=== PATIENT | male | born 1960 | race Caucasian/White ===

== ENCOUNTER 2017-01-15 14:50 | Emergency (ER) | payer MEDICAID ==
[~2017-01-15 14:50] MED LIST: AMOX-291
== END 2017-01-15 17:21 | disposition left against medical advice (07) ==
LOC: ED 17:15
DX: F10.129 Alcohol abuse with intoxication, unspecified (principal); Z53.21 Procedure and treatment not carried out due to patient leaving prior to being seen by health care provider

== ENCOUNTER 2017-02-25 02:30 | Inpatient (IN) | payer MEDICAID ==
[~2017-02-25] VITALS: Ht 177.8 cm; Wt 79.0 kg
[2017-02-25] MEDS ORDERED: LORazepam 2 MG/ML, 1ML ONE (02:51)
[2017-02-25] MEDS ORDERED: SODIUM CHLORIDE FLUSH 10ML SYR IVF ONE (03:00)
[2017-02-25] MEDS ORDERED: LORazepam 2 MG/ML, 1ML IVPush ONE (03:00)
[2017-02-25] MEDS ORDERED: SODIUM CHLORIDE 0.9% 1,000ML IVBOLUS ONE (03:00)
[2017-02-25 03:02] LABS: BLOOD UREA NITROGEN 18 mg/dL (7-18)
[2017-02-25 03:09] LABS: IS PT STATUS REG ER OR PRE ER? YES
[2017-02-25] MEDS ORDERED: ZIPRASIDONE 20 MG INJ IM ONE ×2 (03:17→03:30)
[2017-02-25 07:40] VITALS: BP 123/86
[2017-02-25] MEDS ORDERED: ONDANSETRON 2MG/ML, 2ML IVPush PRN (10:30)
[2017-02-25] MEDS ORDERED: DOCUSATE 100 MG CAPSULE PO PRN (10:30)
[2017-02-25] MEDS ORDERED: BISACODYL 10 MG SUPP PR PRN (10:30)
[2017-02-25] MEDS ORDERED: POLYETHYLENE GLYCOL 17 GM PACKET PO PRN (10:30)
[2017-02-25] MEDS ORDERED: ACETAMINOPHEN 325 MG TABLET PO PRN (10:30)
[2017-02-25] MEDS ORDERED: THIAMINE 200 MG in SODIUM CHLORIDE 0.9% 50 ML IV ONE (11:00)
[2017-02-25 11:46] LABS: IS PT STATUS REG ER OR PRE ER? NO
[2017-02-25] MEDS: ENOXAPARIN 40 MG/0.4 ML SQ SCH (12:02)
[2017-02-25] MEDS: SODIUM CHLORIDE 0.9% 1,000 ML IV SCH ×2 (12:02→16:53)
[2017-02-25] MEDS: POTASSIUM CHLORIDE 20 MEQ TAB.ER.PRT PO SCH ×3 (12:02→21:39)
[2017-02-25 15:00] VITALS: BP 106/75
[2017-02-25 16:31] LABS: IS PT STATUS REG ER OR PRE ER? NO
[2017-02-25 18:37] VITALS: BP 117/74
[2017-02-25 22:14] LABS: IS PT STATUS REG ER OR PRE ER? NO
[2017-02-26 01:24] VITALS: BP 116/75
[2017-02-26] MEDS: SODIUM CHLORIDE 0.9% 1,000 ML IV SCH ×2 (05:03→12:10)
[2017-02-26 06:00] LABS: ASPARTATE AMINO TRANSFERASE 22 U/L (15-37); BLOOD UREA NITROGEN 19 mg/dL (7-18)
[2017-02-26 06:50] VITALS: BP 121/77
[2017-02-26] MEDS: MULTIVITAMIN 1 TABLET PO SCH (09:04)
[2017-02-26] MEDS: THIAMINE 100MG TABLET PO SCH (09:04)
[2017-02-26] MEDS: FOLIC ACID 1 MG TABLET PO SCH (09:04)
[2017-02-26 12:04] VITALS: BP 117/69
[2017-02-26] MEDS: ENOXAPARIN 40 MG/0.4 ML SQ SCH (12:22)
[2017-02-26] MEDS ORDERED: FOLI-17 PO (15:05)
[2017-02-26] MEDS ORDERED: THIA100T6 PO (15:05)
[2017-02-26] MEDS ORDERED: MULT1TAB60 PO (15:05)
[2017-02-26 19:41] VITALS: BP 121/79
[2017-02-27 02:55] VITALS: BP 107/70
[2017-02-27] MEDS ORDERED: REGADENOSON 0.4 MG/5 ML SYRINGE ONE (07:49)
[2017-02-27 08:11] VITALS: BP 103/75
[2017-02-27] MEDS: THIAMINE 100MG TABLET PO SCH (10:51)
[2017-02-27] MEDS: MULTIVITAMIN 1 TABLET PO SCH (10:51)
[2017-02-27] MEDS: ENOXAPARIN 40 MG/0.4 ML SQ SCH (10:51)
[2017-02-27] MEDS: FOLIC ACID 1 MG TABLET PO SCH (10:51)
[2017-02-27 16:10] VITALS: BP 122/86
[2017-02-27] MEDS ORDERED: ASPI-515 PO (17:24)
== END 2017-02-27 18:34 | disposition home or self-care (01) | DRG 918 ==
LOC: ED 04:40 → EDIP 06:05 → 5SO 07:24
PROVIDERS: ADMIT Hospitalist; ATTEND Internal Medicine
DX: T43.621A Poisoning by amphetamines, accidental (unintentional), initial encounter (principal); R00.2 Palpitations; E87.6 Hypokalemia; M19.90 Unspecified osteoarthritis, unspecified site; F10.20 Alcohol dependence, uncomplicated; G47.00 Insomnia, unspecified; F15.10 Other stimulant abuse, uncomplicated; R00.0 Tachycardia, unspecified; Y92.89 Other specified places as the place of occurrence of the external cause
CPT/HCPCS: 36415; 71010; 78452; 80048; 80053; 80061; 82040; 83735; 84100; 84443; 84484; 85025; 93005; 93017; 93306; 96361; 96372; 96374; J1650; J2785; J3411; J3486; A9502; C9898; J2060; J7030

== ENCOUNTER 2017-03-26 02:08 | Emergency (ER) | payer MEDICAID ==
[~2017-03-26] VITALS: Ht 180.3 cm; Wt 78.0 kg
[~2017-03-26 02:08] MED LIST changes: +ASPI-515 PO; +FOLI-17 PO; +MULT1TAB60 PO; +THIA100T6 PO
[2017-03-26] MEDS ORDERED: SODIUM CHLORIDE 0.9% 1,000 ML IV ONE (02:22)
[2017-03-26] MEDS ORDERED: HALOPERIDOL 5 MG/ML ONE ×2 (02:27→03:00)
[2017-03-26] MEDS ORDERED: LORazepam 2 MG/ML, 1ML ONE (02:27)
[2017-03-26] MEDS ORDERED: HALOPERIDOL 5 MG/ML IM ONE (02:30)
[2017-03-26] MEDS ORDERED: SODIUM CHLORIDE 0.9% 1,000ML IVBOLUS ONE (02:30)
[2017-03-26] MEDS ORDERED: LORazepam 2 MG/ML, 1ML IVPush ONE (02:30)
[2017-03-26 02:48] LABS: HEMATOCRIT 44.8 % (39.2-51.8); HEMOGLOBIN 14.7 g/dL (13.7-18.0); WHITE BLOOD COUNT 10.3 x10^3/uL (3.4-10)
[2017-03-26 03:00] LABS: BLOOD UREA NITROGEN 19 mg/dL (7-18)
[2017-03-26] MEDS ORDERED: DIPHENHYDRAMINE 50 MG/ML, 1ML IM ONE (03:00)
[2017-03-26] MEDS ORDERED: DIPHENHYDRAMINE 50 MG/ML, 1ML ONE (03:00)
[2017-03-26] MEDS ORDERED: HALOPERIDOL 5 MG/ML IM PRN (03:00)
[2017-03-26] MEDS ORDERED: POTASSIUM CHLORIDE 20 MEQ TAB.ER.PRT ONE (03:09)
[2017-03-26 03:12] LABS: ACETAMINOPHEN < 2 mcg/mL (10-30)
[2017-03-26] MEDS ORDERED: POTASSIUM CHLORIDE 20 MEQ TAB.ER.PRT PO ONE (03:30)
[2017-03-26 10:23] VITALS: BP 109/83
== END 2017-03-26 10:25 | disposition home or self-care (01) ==
LOC: ED 02:23
DX: F15.151 Other stimulant abuse with stimulant-induced psychotic disorder with hallucinations (principal); F22 Delusional disorders; Z72.9 Problem related to lifestyle, unspecified; G92 Toxic encephalopathy; G89.29 Other chronic pain; M25.512 Pain in left shoulder
CPT/HCPCS: 36415; 80048; 80307; 80329; 82040; 85025; 93005; 96361; 96372; 96374; 99291; J1200; J1630; J2060; J7030; G0480

== ENCOUNTER 2017-06-23 17:39 | Emergency (ER) | payer MEDICAID ==
[~2017-06-23] VITALS: Ht 180.3 cm; Wt 78.0 kg
[2017-06-23] MEDS ORDERED: LORazepam 1MG TABLET ONE ×2 (18:20→20:12)
[2017-06-23] MEDS ORDERED: SODIUM CHLORIDE 0.9% 1,000ML IVBOLUS ONE (18:30)
[2017-06-23] MEDS ORDERED: LORazepam 2 MG/ML, 1ML IVPush ONE (18:30)
[2017-06-23] MEDS ORDERED: LORazepam 1MG TABLET PO ONE ×2 (18:30→20:00)
[2017-06-23] MEDS ORDERED: ZIPRASIDONE 20 MG INJ IM ONE (23:53)
[2017-06-24] MEDS ORDERED: ZIPRASIDONE 20 MG INJ IM ONE
[2017-06-24 03:53] VITALS: BP 100/66
== END 2017-06-24 03:56 | disposition home or self-care (01) ==
LOC: ED 19:08
DX: F22 Delusional disorders (principal); F41.9 Anxiety disorder, unspecified; F15.229 Other stimulant dependence with intoxication, unspecified; Z87.891 Personal history of nicotine dependence
CPT/HCPCS: 96372; 99284; J3486

== ENCOUNTER 2017-07-11 10:18 | Emergency (ER) | payer MEDICAID ==
[~2017-07-11] VITALS: Ht 180.3 cm; Wt 78.0 kg
[2017-07-11 13:13] VITALS: BP 102/72
== END 2017-07-11 13:15 | disposition home or self-care (01) ==
LOC: ED 10:38
DX: F41.9 Anxiety disorder, unspecified (principal); F10.129 Alcohol abuse with intoxication, unspecified; F15.10 Other stimulant abuse, uncomplicated; G89.29 Other chronic pain
CPT/HCPCS: 99283

== ENCOUNTER 2017-07-13 19:01 | Emergency (ER) | payer MEDICAID ==
[~2017-07-13] VITALS: Ht 185.4 cm; Wt 100.0 kg
[2017-07-13 21:01] VITALS: BP 110/71
== END 2017-07-13 21:26 | disposition home or self-care (01) ==
LOC: ED 19:32
DX: S16.1XXA Strain of muscle, fascia and tendon at neck level, initial encounter (principal); S00.93XA Contusion of unspecified part of head, initial encounter; Z87.891 Personal history of nicotine dependence; Y04.8XXA Assault by other bodily force, initial encounter; Y93.89 Activity, other specified; Y99.8 Other external cause status; Y92.89 Other specified places as the place of occurrence of the external cause
CPT/HCPCS: 70450; 72125; 99284

== ENCOUNTER 2017-09-12 01:02 | Emergency (ER) | payer MEDICAID ==
[~2017-09-12] VITALS: Ht 180.3 cm; Wt 80.0 kg
[2017-09-12 01:10] VITALS: BP 127/88
== END 2017-09-12 02:35 | disposition home or self-care (01) ==
LOC: ED 01:14
DX: S06.0X0A Concussion without loss of consciousness, initial encounter (principal); G89.29 Other chronic pain; M25.512 Pain in left shoulder; F10.120 Alcohol abuse with intoxication, uncomplicated; W01.0XXA Fall on same level from slipping, tripping and stumbling without subsequent striking against object, initial encounter; Y93.89 Activity, other specified; Y99.8 Other external cause status; Y92.410 Unspecified street and highway as the place of occurrence of the external cause
CPT/HCPCS: 70450; 99284

== ENCOUNTER 2018-03-29 11:48 | Emergency (ER) | payer MEDICAID ==
[~2018-03-29] VITALS: Ht 180.3 cm; Wt 73.0 kg
[~2018-03-29 11:48] MED LIST changes: -THIA100T6 PO; +THIA100T67 PO
[2018-03-29] MEDS ORDERED: SODIUM CHLORIDE FLUSH 10ML SYR IVF ONE (13:00)
[2018-03-29] MEDS ORDERED: SODIUM CHLORIDE 0.9% 1,000ML IVBOLUS ONE (13:00)
[2018-03-29 13:09] LABS: BASOPHILS # (AUTO) 0.03 x10^3/uL (0-0.1); BASOPHILS % (AUTO) 0 % (0-1); EOSINOPHILS % (AUTO) 0 % (1-7); LYMPHOCYTES # (AUTO) 0.98 x10^3/uL (1-3.4); LYMPHOCYTES % (AUTO) 10 % (22-44); MD NO; MEAN CORPUSCULAR HEMOGLOBIN 31.3 pg (27.5-34.5); MEAN CORPUSCULAR VOLUME 91.9 fL (81-97); MEAN PLATELET VOLUME 7.6 fL (7.4-10.4); MONOCYTES % (AUTO) 3 % (2-9); NEUTROPHILS # (AUTO) 8.69 x10^3/uL (1.8-6.8); NEUTROPHILS % (AUTO) 87 % (42-75); PLATELET COUNT 349 x10^3/uL (130-400); RED BLOOD COUNT 4.65 x10^6/uL (4.38-5.82); RED CELL DISTRIBUTION WIDTH 14.3 % (9.4-14.8)
[2018-03-29 13:21] LABS: ALANINE AMINOTRANSFERASE 27 U/L (12-78); ALBUMIN 3.7 g/dL (3.4-5.0); ANION GAP 10 mmol/L (5-15); CALCIUM 7.8 mg/dL (8.5-10.1); CHLORIDE 114 mmol/L (98-107)
[2018-03-29 13:23] LABS: ALKALINE PHOSPHATASE 63 U/L (45-117); BILIRUBIN,TOTAL 0.3 mg/dL (0.2-1.0); CREATININE 0.93 mg/dL (0.7-1.3)
[2018-03-29 17:24] VITALS: BP 101/64
== END 2018-03-29 17:34 | disposition home or self-care (01) ==
LOC: ED 17:00
DX: F10.229 Alcohol dependence with intoxication, unspecified (principal); G31.2 Degeneration of nervous system due to alcohol; I95.89 Other hypotension; E86.0 Dehydration; F17.200 Nicotine dependence, unspecified, uncomplicated
CPT/HCPCS: 36415; 80053; 85025; 93005; 99285; J7030

== ENCOUNTER 2018-12-20 15:17 | Emergency (ER) | payer MEDICAID ==
[~2018-12-20] VITALS: Ht 180.3 cm; Wt 66.0 kg
[2018-12-20 15:31] VITALS: BP 141/97
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
[2018-12-20] MEDS ORDERED: GABA-827 PO (15:39)
--- NOTE | 2018-12-20 15:52 | NUR ---
PATIENT BACK FROM CT. NAD NOTED.
--- NOTE | 2018-12-20 16:44 | NUR ---
PATIENT SLEEPING IN GURNEY, VISIBLE CHEST RISE AND FALL, NAD NOTED.
--- NOTE | 2018-12-20 17:53 | NUR ---
Patient states he is ready to go home. Patient/Caregiver given discharge instructions and they have confirmed that they understand the instructions. Patient ambulatory with steady gait to DC desk.
== END 2018-12-20 17:55 | disposition home or self-care (01) ==
LOC: ED 16:02
DX: F10.220 Alcohol dependence with intoxication, uncomplicated (principal)
CPT/HCPCS: 70450; 99284

== ENCOUNTER 2018-12-27 23:41 | Emergency (ER) | payer MEDICAID ==
[~2018-12-27] VITALS: Ht 180.3 cm; Wt 67.0 kg
[~2018-12-27 23:41] MED LIST changes: +GABA-827 PO
--- NOTE | 2018-12-27 23:57 | NUR ---
assessment made. seen by ERP with order.
[2018-12-27] MEDS ORDERED: ZIPRASIDONE 20 MG INJ IM ONE (23:58)
[2018-12-28] MEDS ORDERED: ZIPRASIDONE 20 MG INJ IM ONE
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
--- NOTE | 2018-12-28 01:02 | NUR ---
patient alert and oriented. ambulatory. no more agitation. discharged with instruction. cab voucher provided.
[2018-12-28 01:03] VITALS: BP 119/86
== END 2018-12-28 01:05 | disposition home or self-care (01) ==
LOC: ED 23:49
DX: F41.9 Anxiety disorder, unspecified (principal); F15.929 Other stimulant use, unspecified with intoxication, unspecified; F10.129 Alcohol abuse with intoxication, unspecified
CPT/HCPCS: 71045; 93005; 96372; 99284; J3486

== ENCOUNTER 2019-08-21 12:47 | Emergency (ER) | payer MEDICAID ==
[~2019-08-21] VITALS: Ht 180.3 cm; Wt 76.1 kg
[2019-08-21 13:36] LABS: BASOPHILS # (AUTO) 0.02 x10^3/uL (0-0.1); BASOPHILS % (AUTO) 0 % (0-1); EOSINOPHILS # (AUTO) 0.01 x10^3/uL (0-0.4); EOSINOPHILS % (AUTO) 0 % (1-7); LYMPHOCYTES # (AUTO) 1.04 x10^3/uL (1-3.4); LYMPHOCYTES % (AUTO) 10 % (22-44); MD NO; MEAN CORPUSCULAR HEMOGLOBIN 31.8 pg (27.5-34.5); MEAN CORPUSCULAR HGB CONC 33.6 g/dL (33.2-36.2); MEAN CORPUSCULAR VOLUME 94.4 fL (81-97); MONOCYTES # (AUTO) 1.01 x10^3/uL (0.2-0.8); MONOCYTES % (AUTO) 9 % (2-9); NEUTROPHILS # (AUTO) 8.88 x10^3/uL (1.8-6.8); NEUTROPHILS % (AUTO) 81 % (42-75); PLATELET COUNT 463 x10^3/uL (130-400); RED BLOOD COUNT 4.77 x10^6/uL (4.38-5.82); RED CELL DISTRIBUTION WIDTH 15.3 % (9.4-14.8)
[2019-08-21 13:46] LABS: ALANINE AMINOTRANSFERASE 34 U/L (12-78); ALBUMIN 3.5 g/dL (3.4-5.0); ANION GAP 7 mmol/L (5-15); CALCIUM 9.1 mg/dL (8.5-10.1); CHLORIDE 101 mmol/L (98-107); CREATININE 0.91 mg/dL (0.7-1.3)
[2019-08-21 13:48] LABS: ALKALINE PHOSPHATASE 89 U/L (45-117); BILIRUBIN,TOTAL 0.3 mg/dL (0.2-1.0); TOTAL PROTEIN 8.2 g/dL (6.4-8.2)
[2019-08-21] MEDS ORDERED: KETOROLAC 30 MG/1 ML IVPush ONE (15:30)
[2019-08-21] MEDS ORDERED: SODIUM CHLORIDE 0.9% 1,000ML IVBOLUS ONE (15:30)
[2019-08-21] MEDS ORDERED: LORazepam 2 MG/ML, 1ML IVPush ONE (15:30)
[2019-08-21 15:48] LABS: RAPID INFLUENZA A Negative (Negative); RAPID INFLUENZA B Negative (Negative)
[2019-08-21] MEDS ORDERED: KETOROLAC 30 MG/1 ML ONE (15:49)
[2019-08-21] MEDS ORDERED: LORazepam 2 MG/ML, 1ML ONE (15:50)
[2019-08-21 15:55] VITALS: BP 146/105
--- NOTE | 2019-08-21 15:56 | NUR ---
PT RESTING IN ROOM. NO ACUTE DISTRESS NOTED. VS STABLE. WILL CONTINUE TO MONITOR.
--- NOTE | 2019-08-21 16:11 | NUR ---
DR ROGERS HAS UPADATED PATIENT.
== END 2019-08-21 17:02 | disposition home or self-care (01) ==
LOC: ED 16:20
DX: F10.239 Alcohol dependence with withdrawal, unspecified (principal); E86.0 Dehydration; F15.129 Other stimulant abuse with intoxication, unspecified; Y90.0 Blood alcohol level of less than 20 mg/100 ml
CPT/HCPCS: 36415; 71046; 80053; 85025; 87400; 93005; 96361; 96374; 96375; 99284; J1885; J2060; J7030

== ENCOUNTER 2019-11-01 03:14 | Emergency (ER) | payer MEDICAID ==
[~2019-11-01] VITALS: Ht 182.9 cm; Wt 80.0 kg
[2019-11-01] MEDS ORDERED: PROMETHAZINE 25 MG/ML, 1ML ONE (03:48)
[2019-11-01] MEDS ORDERED: SODIUM CHLORIDE 0.9% 1,000ML IVBOLUS ONE (04:00)
[2019-11-01] MEDS ORDERED: SODIUM CHLORIDE FLUSH 10ML SYR IVF ONE (04:00)
[2019-11-01] MEDS ORDERED: PROMETHAZINE 25 MG/ML, 1ML IM ONE (04:00)
[2019-11-01 04:11] LABS: RAPID INFLUENZA A Negative (Negative); RAPID INFLUENZA B Negative (Negative)
[2019-11-01 04:13] LABS: BASOPHILS # (AUTO) 0.02 x10^3/uL (0-0.1); BASOPHILS % (AUTO) 0 % (0-1); EOSINOPHILS # (AUTO) 0.02 x10^3/uL (0-0.4); EOSINOPHILS % (AUTO) 0 % (1-7); LYMPHOCYTES # (AUTO) 1.17 x10^3/uL (1-3.4); LYMPHOCYTES % (AUTO) 12 % (22-44); MD NO; MEAN CORPUSCULAR HEMOGLOBIN 30.1 pg (27.5-34.5); MEAN CORPUSCULAR HGB CONC 33.4 g/dL (33.2-36.2); MEAN CORPUSCULAR VOLUME 90.2 fL (81-97); MEAN PLATELET VOLUME 8.1 fL (7.4-10.4); MONOCYTES # (AUTO) 0.52 x10^3/uL (0.2-0.8); MONOCYTES % (AUTO) 6 % (2-9); NEUTROPHILS # (AUTO) 7.72 x10^3/uL (1.8-6.8); NEUTROPHILS % (AUTO) 82 % (42-75); PLATELET COUNT 314 x10^3/uL (130-400); RED CELL DISTRIBUTION WIDTH 14.3 % (9.4-14.8)
[2019-11-01 04:16] LABS: ALANINE AMINOTRANSFERASE 40 U/L (12-78); ALBUMIN 4.2 g/dL (3.4-5.0); ANION GAP 12 mmol/L (5-15); CALCIUM 9.3 mg/dL (8.5-10.1); CHLORIDE 105 mmol/L (98-107); CREATININE 0.88 mg/dL (0.7-1.3)
[2019-11-01 04:21] LABS: ALKALINE PHOSPHATASE 66 U/L (45-117); BILIRUBIN,TOTAL 0.7 mg/dL (0.2-1.0); TOTAL PROTEIN 8.4 g/dL (6.4-8.2); TROPONIN I < 0.015 ng/mL (0.000-0.045)
[2019-11-01 04:51] VITALS: BP 136/78
== END 2019-11-01 04:57 | disposition home or self-care (01) ==
LOC: ED 03:44
DX: Z03.818 Encounter for observation for suspected exposure to other biological agents ruled out (principal); K29.20 Alcoholic gastritis without bleeding; F10.10 Alcohol abuse, uncomplicated; R10.13 Epigastric pain; K21.9 Gastro-esophageal reflux disease without esophagitis; F17.210 Nicotine dependence, cigarettes, uncomplicated; Y90.0 Blood alcohol level of less than 20 mg/100 ml
CPT/HCPCS: 36415; 71045; 80053; 80307; 83690; 84484; 85025; 87400; 93005; 96372; 99285; 99406; J2550; J7030

== ENCOUNTER 2020-06-28 13:43 | Emergency (ER) | payer MEDICAID ==
[~2020-06-28] VITALS: Ht 180.3 cm; Wt 87.4 kg
[~2020-06-28 13:43] MED LIST changes: +MULT-449 PO; -MULT1TAB60 PO
--- NOTE | 2020-06-28 15:14 | NUR ---
SUPERVISOR ORDER TAKERS: PT TO ROOM FROM LOBBY
--- NOTE | 2020-06-28 15:30 | NUR ---
PT ON MEDICAL SUPERINTENDENT, CONT PULSE OX, WITH CALL LIGHT IN REACH. NAD NOTED, WILL CONTINUE TO MONITOR.
--- NOTE | 2020-06-28 15:30 | NUR ---
PT REPORTS PRODUCTIVE COUGH X FOUR DAYS. DENIES FEVER/CP/SOB. PT STATES "I'M NOT REALLY SICK, JUST LIKE DON'T LIKE THE CONGESTION".
[2020-06-28 16:14] VITALS: BP 119/71
== END 2020-06-28 16:42 | disposition home or self-care (01) ==
LOC: ED 16:35
DX: J06.9 Acute upper respiratory infection, unspecified (principal); Z20.828 Contact with and (suspected) exposure to other viral communicable diseases; K21.9 Gastro-esophageal reflux disease without esophagitis
CPT/HCPCS: 71045; 87635; 99284